=== PATIENT | male | born 1965 | race Caucasian/White ===

== ENCOUNTER → 2018-08-02 13:36 | Outpatient (CLI) | payer MEDICARE, MEDICAID, SELFPAY ==
--- NOTE | 2018-08-02 13:58 | RAD_ITS ---
STUDY: X-RAY - CERVICAL SPINE REASON FOR EXAM: Male, 53 years old. Neck pain. TECHNIQUE: 5 view(s) of the cervical spine were obtained. COMPARISON: Prior comparison studies are not available for review at this time. FINDINGS: There are degenerative changes of the anterior atlantoaxial articulation. Normal odontoid process. Normal cervical lordosis. There is multi-level endplate spondylosis. There is multi-level degenerative disc disease with multilevel disc space narrowing. The posterior elements have normal alignment. There is multilevel degenerative arthropathy of the uncovertebral and facet joints. The soft tissue structures are unremarkable. RAD/Cerv Spine 4 or 5 Views IMPRESSION: Multilevel degenerative disc disease and a degenerative arthropathy of the cervical spine. Electronically Signed: Cuca Ren MD at 5:16 EDT , Service support ,
--- NOTE | 2018-08-02 13:58 | RAD_ITS ---
STUDY: X-RAY - LUMBAR SPINE REASON FOR EXAM: Male, 53 years old. Low back pain with radicular symptoms to the leg. TECHNIQUE: 6 view(s) of the lumbar spine were obtained. COMPARISON: Prior comparison studies are not available for review at this time. FINDINGS: Normal lumbar lordosis. There is no substantial scoliosis. There is a normal alignment of the vertebrae. There is multilevel endplate spondylosis of the lumbar vertebrae. There is narrowing of the L5-S1 disc space. There is multilevel degenerative arthropathy of the facet joints.. There is no demonstrated fracture. There is no obvious ventriculomegaly, mass or dilated bowel. No pathologic calcifications are visualized. RAD/L/S Spine Min 4 Views IMPRESSION: There is multilevel spondylosis and degenerative arthropathy of the lumbar spine. Electronically Signed: Cuca Ren MD at 5:20 EDT , Service support ,
[2018-08-02 14:36] LABS: Amphetamine Urine VISTA NEGATIVE (<1000 ng/mL); Barbiturate Urine VISTA NEGATIVE (< 200 ng/mL); Benzodiazepine Urine VISTA NEGATIVE (< 200 ng/mL); Cocaine Urine VISTA NEGATIVE (< 300 ng/mL); Ecstacy Urine VISTA NEGATIVE (< 500 ng/mL); Methadone Urine VISTA NEGATIVE (< 300 ng/mL); PCP Urine VISTA NEGATIVE (< 25 ng/mL); THC Urine VISTA NEGATIVE (< 50 ng/mL); Vista UDS pH Range 5
== END ==
PROVIDERS: Referring Provider Anesthesiology; Visit Provider Anesthesiology
DX: M54.5 Low back pain (principal); M54.2 Cervicalgia; F11.20 Opioid dependence, uncomplicated
CPT/HCPCS: 72050; 72110; 80307